=== PATIENT | female | born 1995 | race Caucasian/White ===

== ENCOUNTER 2020-09-30 19:40 | Emergency (ER) | payer MEDICAID ==
[~2020-09-30] VITALS: Ht 160 cm; Wt 72.7 kg
[2020-09-30 19:47] VITALS: BP 115/46
== END 2020-09-30 20:45 | disposition home or self-care (01) ==
LOC: ER 19:41
DX: T78.40XA Allergy, unspecified, initial encounter (principal)
CPT/HCPCS: 99282

== ENCOUNTER 2020-11-09 10:34 | Emergency (ER) | payer MEDICAID ==
[~2020-11-09] VITALS: Ht 160 cm; Wt 82.0 kg
[2020-11-09 11:25] LABS: BASOPHILS % (AUTO) 0.2 % (0-1); EOSINOPHILS % (AUTO) 0.7 % (0-6); HEMATOCRIT 37.9 % (35.0-45.0); HEMOGLOBIN 12.6 g/dl (12.0-16.0); LYMPHOCYTES # (AUTO) 1.4 X10'3 (1.1-4.8); LYMPHOCYTES % (AUTO) 21.9 % (21-51); MEAN CORPUSCULAR HEMOGLOBIN 29.3 PG (27.0-31.0); MEAN CORPUSCULAR HGB CONC 33.2 g/dL (33.0-36.5); MEAN CORPUSCULAR VOLUME 88.2 FL (78-98); MEAN PLATELET VOLUME 8.9 FL (7.4-10.4); MONOCYTES # (AUTO) 0.7 X10'3 (0-0.9); MONOCYTES % (AUTO) 10.5 % (2-12); NEUTROPHILS # (AUTO) 4.2 X10'3 (1.8-7.7); NEUTROPHILS % (AUTO) 66.7 % (42-75); PLATELET COUNT 255 X10'3 (140-440); RED CELL DISTRIBUTION WIDTH 13.2 % (11.5-14.5); WHITE BLOOD COUNT 6.4 X10'3 (4.5-11.0)
[2020-11-09 11:40] LABS: ALANINE AMINOTRANSFERASE 40 U/L (12-78); ALBUMIN 3.3 G/DL (3.4-5.0); ALBUMIN/GLOBULIN RATIO 0.8 (1.1-1.5); ALKALINE PHOSPHATASE 98 IU/L (46-116); ANION GAP 10 (8-16); ASPARTATE AMINO TRANSFERASE 17 U/L (10-37); BILIRUBIN,TOTAL 0.2 MG/DL (0.1-1.0); BLOOD UREA NITROGEN 14 MG/DL (7-18); BUN/CREATININE RATIO 17.9 (6.6-38.0); CALCIUM 8.4 MG/DL (8.5-10.1); CHLORIDE 105 MMOL/L (99-107); CREATININE 0.78 MG/DL (0.40-0.90); GLUCOSE 96 MG/DL (70-104); POTASSIUM 4.3 MMOL/L (3.5-5.1); SODIUM 139 MMOL/L (135-145); TOTAL CARBON DIOXIDE 23.8 MMOL/L (24-32); TOTAL PROTEIN 7.2 G/DL (6.4-8.2); eGFR 89 ML/MIN
[2020-11-09 11:46] LABS: BETA HCG,QUANTITATIVE 10 mIU/ml
[2020-11-09 12:26] LABS: CLARITY,URINE CLOUDY (Clear); COLOR,URINE STRAW (Yellow); GLUCOSE, URINE NEGATIVE (Neg); KETONES,URINE NEGATIVE (Neg); LEUKOCYTE ESTERASE ,URINE NEGATIVE (Neg); NITRITES, URINE NEGATIVE (Neg); OCCULT BLOOD,URINE LARGE (Neg); PH,URINE 5.5 (4.8-8.0); PROTEIN,URINE TRACE mg/dl (Neg); UROBILINOGEN,URINE 0.2 E.U/dL (0.2-1.0)
[2020-11-09 12:30] LABS: UA COLLECTION TYPE CLN CATCH MIDSTREAM
[2020-11-09 12:34] LABS: MUCUS STRANDS MANY /LPF (Neg); SQUAMOUS EPITHELIAL CELL,UR MANY /LPF (FEW)
[2020-11-09 12:35] LABS: RBC,URINE TNTC /HPF (0-2)
[2020-11-09 12:37] LABS: WBC,URINE 0-4 /HPF (0-4)
[2020-11-09 12:38] LABS: BACTERIA,URINE 1+ /HPF (Neg)
[2020-11-09 13:36] VITALS: BP 106/74
== END 2020-11-09 13:34 | disposition home or self-care (01) ==
LOC: ER 10:35
DX: O20.0 Threatened abortion (principal); Z3A.01 Less than 8 weeks gestation of pregnancy
CPT/HCPCS: 36415; 76801; 76817; 80053; 81001; 84702; 85025; 86900; 86901; 93976; 99285

== ENCOUNTER 2021-01-15 10:55 | Emergency (ER) | payer MEDICAID ==
[~2021-01-15] VITALS: Ht 160 cm; Wt 77.3 kg
[2021-01-15] MEDS ORDERED: methadone 10mg tablet PO ONE (11:30)
[2021-01-15 11:35] VITALS: BP 109/77
== END 2021-01-15 11:41 | disposition home or self-care (01) ==
LOC: ER 10:55
DX: F11.23 Opioid dependence with withdrawal (principal)
CPT/HCPCS: 99283

== ENCOUNTER 2021-11-24 21:09 | Emergency (ER) | payer MEDICAID ==
[~2021-11-24] VITALS: Ht 160 cm; Wt 90.9 kg
[2021-11-24] MEDS ORDERED: acetaminophen 325mg tablet PO ONE (23:35)
[2021-11-24] MEDS ORDERED: acetaminophen 325mg tablet ONE (23:38)
[2021-11-25 01:06] VITALS: BP 152/72
== END 2021-11-25 01:10 | disposition home or self-care (01) ==
LOC: ER 21:10
DX: M79.672 Pain in left foot (principal)
CPT/HCPCS: 29515; 73630; 99283; L3260

== ENCOUNTER 2023-07-02 18:52 | Emergency (ER) | payer MEDICAID ==
[~2023-07-02] VITALS: Ht 160 cm; Wt 94.0 kg
[2023-07-02 19:47] VITALS: BP 131/43; PULSE 64; RESP 18; TEMP 97.8; O2SAT 99
[2023-07-02] MEDS ORDERED: TRIA15CR61 TOP (19:50)
== END 2023-07-02 19:54 | disposition home or self-care (01) ==
LOC: ER 18:53
DX: R21 Rash and other nonspecific skin eruption (principal)
CPT/HCPCS: 99282; 99283

== ENCOUNTER 2024-01-27 21:26 | Emergency (ER) | payer MEDICAID ==
[~2024-01-27] VITALS: Ht 160 cm; Wt 90.9 kg
[2024-01-27 21:39] VITALS: TEMP 97.9
[2024-01-27 22:04] LABS: BASOPHILS % (AUTO) 0.2 % (0-1); EOSINOPHILS # (AUTO) 0.1 X10'3 (0-0.9); EOSINOPHILS % (AUTO) 1.2 % (0-6); HEMATOCRIT 37.8 % (35.0-45.0); HEMOGLOBIN 12.7 g/dl (12.0-16.0); LYMPHOCYTES % (AUTO) 28.9 % (21-51); MEAN CORPUSCULAR HEMOGLOBIN 28.6 PG (27.0-31.0); MEAN CORPUSCULAR HGB CONC 33.6 g/dL (33.0-36.5); MEAN CORPUSCULAR VOLUME 85.1 FL (78-98); MONOCYTES # (AUTO) 0.6 X10'3 (0-0.9); MONOCYTES % (AUTO) 8.2 % (2-12); NEUTROPHILS # (AUTO) 4.3 X10'3 (1.8-7.7); NEUTROPHILS % (AUTO) 61.5 % (42-75); PLATELET COUNT 274 X10'3 (140-440); RED BLOOD COUNT 4.44 X10'6 (4.20-5.60); RED CELL DISTRIBUTION WIDTH 13.4 % (11.5-14.5)
[2024-01-27 22:29] LABS: GLUCOSE 94 MG/DL (70-104); SODIUM 142 MMOL/L (135-145)
[2024-01-27 22:30] LABS: ALANINE AMINOTRANSFERASE 48 U/L (12-78); ALBUMIN 3.4 G/DL (3.4-5.0); ALBUMIN/GLOBULIN RATIO 0.9 (1.1-1.5); ALKALINE PHOSPHATASE 115 IU/L (46-116); ANION GAP 8 (8-16); ASPARTATE AMINO TRANSFERASE 25 U/L (10-37); BILIRUBIN,TOTAL 0.2 MG/DL (0.1-1.0); BLOOD UREA NITROGEN 12 MG/DL (7-18); BUN/CREATININE RATIO 14.8 (10.0-20.0); CHLORIDE 106 MMOL/L (99-107); CREATININE 0.81 MG/DL (0.40-0.90); PRO BRAIN NATRIURETIC PEPTIDE 82 PG/ML (0-125); TOTAL CARBON DIOXIDE 28.3 MMOL/L (24-32); TOTAL PROTEIN 7.4 G/DL (6.4-8.2); eCRCL 85 ML/MIN; eGFR 84 ML/MIN
[2024-01-27] MEDS ORDERED: ALBU8HFA INH (23:38)
[2024-01-28 00:05] VITALS: BP 118/87; PULSE 87; RESP 16; O2SAT 98
[2024-01-29] MEDS ORDERED: PRED50TA PO (14:40)
== END 2024-01-28 00:07 | disposition home or self-care (01) ==
LOC: ER 21:27
DX: J04.0 Acute laryngitis (principal)
CPT/HCPCS: 36415; 71045; 80053; 83880; 84484; 85025; 86606; 87305; 93005; 99285

== ENCOUNTER 2024-06-07 13:25 | Emergency (ER) | payer MEDICAID ==
[~2024-06-07] VITALS: Ht 160 cm; Wt 68.0 kg
[~2024-06-07 13:25] MED LIST: PRED50TA PO
[2024-06-07 13:43] VITALS: BP 131/72; PULSE 100; RESP 16; TEMP 98.2; O2SAT 100
== END 2024-06-07 16:24 | disposition left against medical advice (07) ==
LOC: ER 13:26
DX: H61.21 Impacted cerumen, right ear (principal); Z79.52 Long term (current) use of systemic steroids
CPT/HCPCS: 69209; 99282; J7030; A6449

== ENCOUNTER 2025-02-05 16:21 | Emergency (ER) | payer MEDICAID ==
[~2025-02-05] VITALS: Ht 160 cm; Wt 84.3 kg
[2025-02-05 16:28] VITALS: BP 111/63; PULSE 86; TEMP 98.5; O2SAT 99
--- NOTE | 2025-02-05 16:42 | Physician Documentation ---
History of Present Illness ~ Chief Complaint: Weakness Stated Complaint: COMPLICATIONS Time Seen by MD: 18:10 OK to notify your PCP?: Yes Primary Medical Doctor: Nayla Leyva [facility] MSE: Patient is a 29-year-old female that presents to the emergency department for evaluation of weakness. Reports that she is 17 weeks this is her 3rd consecutively. She has not report any specific symptoms other than generalized weakness over the last week that has become progressively worse. Also reports headaches through the night and in the morning intermittently through the day. Patient denies any knowledge of any recent sick contacts. Patient denies fever chills nausea vomiting diarrhea cough congestion or any other symptoms at this time. Medication Reconciliation Allergies: Coded Allergies: No Known Allergies (Unverified , 02/05/25) Scheduled Prednisone (Prednisone), 1 TAB PO DAILY Past Medical History Past Medical History: No Pertinent History Past Surgical History: noncontributory Alcohol Use: None Drug Use: none Lives In: Home Review of Systems ROS As stated above in the HPI, otherwise all systems are reviewed and negative. Physical Exam Vital Signs: Temperature: 98.5, Source: Temporal, Heart Rate: 86, Respiratory Rate: 16, BP: 111/63, Pulse Oximetry: 99, Weight: 84.300 Oxygen Flow Rate: 0 Physical Exam VITALS: Reviewed and as above. GENERAL: Alert, no apparent distress. HEENT: Normocephalic, atraumatic, PERRL, EOMI, dry mucosa, no erythema RESPIRATORY: Lungs clear, normal breath sounds, no respiratory distress. CHEST: No accessory muscle use, no retractions CV: Regular rate, rhythm, no edema, no murmur, No: JVD GI: Soft, non-tender, bowels sounds present, no rebound, guarding, or rigidity BACK: No CVA tenderness, or swelling MUSCULOSKELETAL No deformities, no edema SKIN: Warm and dry, no rash NEURO: Oriented x4, No motor or sensory deficit PSYCH: Normal mood and affect, no agitation Progress Results/Orders Results/Orders Completed Orders - YISEL MANJARREZ PEN RULER OPERATOR Cbc/Diff (02/05/25 16:34) CMP (02/05/25 16:34) Urinalysis, Cult If Indicated (02/05/25 16:34) Stat Ekg (02/05/25 ) Vital Signs 02/05/25 16:28 Temp 98.5 Pulse 86 Resp 16 B/P (MAP) 111/63 Pulse Ox 99 O2 Flow Rate 0 Laboratory Tests Test 02/05/25 16:48 02/05/25 18:35 White Blood Count 9.0 Red Blood Count 4.27 Hemoglobin 12.1 Hematocrit 35.6 Mean Corpuscular Volume 83.3 Mean Corpuscular Hemoglobin 28.3 Mean Corpuscular Hemoglobin Concent 34.0 Red Cell Distribution Width 14.0 Platelet Count 222 Mean Platelet Volume 8.9 Neutrophils (%) (Auto) 75.3 H Lymphocytes (%) (Auto) 17.0 L Monocytes (%) (Auto) 7.2 Eosinophils (%) (Auto) 0.4 Basophils (%) (Auto) 0.1 Neutrophils # (Auto) 6.8 Lymphocytes # (Auto) 1.5 Monocytes # (Auto) 0.7 Eosinophils # (Auto) 0.0 Basophils # (Auto) 0.0 CBC Comment Sodium Level 139 Potassium Level 4.0 Chloride Level 106 Carbon Dioxide Level 24.3 Anion Gap 9 Blood Urea Nitrogen 13 Creatinine 0.52 Estimated GFR/1.73 m2 > 90 BUN/Creatinine Ratio 25.0 H Glucose Level 97 Calcium Level 9.0 Total Bilirubin 0.3 Aspartate Amino Transf (AST/SGOT) 22 Alanine Aminotransferase (ALT/SGPT) 16 Alkaline Phosphatase 60 Total Protein 6.6 Albumin 3.1 L Globulin 3.5 Albumin/Globulin Ratio 0.9 L Chemistry Comments Urine Specimen Description Cln catch midstream Urine Color Yellow Urine Clarity Clear Urine pH 5.5 Urine Specific [place] >=1.030 Urine Protein Negative Urine Glucose (UA) Negative Urine Ketones Negative Urine Occult Blood Negative Urine Nitrite Negative Urine Bilirubin Negative Urine Urobilinogen 0.2 Urine Leukocyte Esterase Negative Urine Culture Indicated Not ind Volume Urine Centrifuged 10 ml Urine Comment Medical Decision Making Findings This patient presents with generalized weakness and fatigue likely secondary to dehydration . Laboratory diagnostics are unremarkable at this time. Considered alternate etiologies of the patients symptoms including infectious processes, severe metabolic derangements or electrolyte abnormalities, ischemia/ACS, heart failure, and intracranial/central processes but think these are unlikely given the history and physical exam. Was patient need to increase her caloric intake increase her fluid intake follow up with her OB offset proof press operator. Patient will follow up with her primary care provider. Patient will return to the emergency department with any worsening or recurrent symptoms or any additional concerning symptoms that we discussed here today i.e. increased weakness headache nausea vomiting inability to keep liquids down or any other concerning symptoms. Differential Dx:Considerations: Include: anemia, CVA, dehydration, dysrhythmia, electrolyte imbalance, encephalopathy, Guillain-[place], hypoglycemia, hypotension, hypovolemia, labyrinthitis, Meniere's disease, myasathenia gravis, myocardial infarction, pulmonary embolus, renal failure, respiratory failure, TIA, VBI, vertigo central, vertigo peripheral, vestibular neuronitis, other Departure Disposition: 01 HOME / SELF CARE / HOMELESS Impression: Primary Impression: Dehydration Additional Impression: Condition: Stable Discharge Instructions: Dehydration, Adult Additional Instructions: This patient presents with generalized weakness and fatigue likely secondary to dehydration . Laboratory diagnostics are unremarkable at this time. Considered alternate etiologies of the patients symptoms including infectious processes, severe metabolic derangements or electrolyte abnormalities, ischemia/ACS, heart failure, and intracranial/central processes but think these are unlikely given the history and physical exam. Was patient need to increase her caloric intake increase her fluid intake follow up with her OB offset proof press operator. Patient will follow up with her primary care provider. Patient will return to the emergency department with any worsening or recurrent symptoms or any additional concerning symptoms that we discussed here today i.e. increased weakness headache nausea vomiting inability to keep liquids down or any other concerning symptoms. Please increase her calorie intake. Please increase your fluid intake. Please follow up with the primary care provider. Return to the emergency department with any worsening or recurrent symptoms or any additional concerning symptoms that we discussed here today. Referrals: NO PRIMARY CARE PROVIDER (PCP) Education Educated: Patient Educated regarding: diagnosis, treatment, need for follow up Signature Scribe Signature: A Attestation: Scribed for Yisel Manjarrez by SLAVA Sommers . 02/05/25 19:02 YISEL MANJARREZ Feb 05, 2025 16:41
--- NOTE | 2025-02-05 16:51 | ELECTROCARDIOGRAPH REPORT ---
[facility] Test Date: 2025-02-05 Test Time: 16:49:01 Pat Name: JACKI RAMIREZ Department: [facility]- Patient ID: [facility]-[id number] Room: Gender: F Reservation Clerk: : 1995 Requested By: SHIRA MANJARREZ Order Number: [id number] Reading MD: Measurements Intervals [place] Rate: 80 P: 50 GA: 120 QRS: 66 QRSD: 94 T: 36 QT: 359 QTc: 415 Interpretive Statements Sinus rhythm Please click the below link to view image of tracing.
[2025-02-05 17:04] LABS: MEAN PLATELET VOLUME 8.9 FL (7.4-10.4); RED CELL DISTRIBUTION WIDTH 14.0 % (11.5-14.5)
[2025-02-05 17:20] LABS: CREATININE 0.52 MG/DL (0.40-0.90); TOTAL CARBON DIOXIDE 24.3 MMOL/L (24-32); eCRCL 131 ML/MIN; eGFR > 90 ML/MIN
[2025-02-05 18:43] LABS: LEUKOCYTE ESTERASE ,URINE NEGATIVE (Neg); NITRITES, URINE NEGATIVE (Neg); OCCULT BLOOD,URINE NEGATIVE (Neg)
[2025-02-05 18:44] LABS: UA COLLECTION TYPE CLN CATCH MIDSTREAM
[2025-02-05 19:00] VITALS: RESP 16
== END 2025-02-05 19:09 | disposition home or self-care (01) ==
LOC: ER 16:21
DX: O99.282 Endocrine, nutritional and metabolic diseases complicating pregnancy, second trimester (principal); O26.892 Other specified pregnancy related conditions, second trimester; E86.0 Dehydration; Z3A.17 17 weeks gestation of pregnancy
CPT/HCPCS: 36415; 80053; 81003; 85025; 93005; 99284